=== PATIENT | female | born 1965 | race Caucasian/White ===

== ENCOUNTER 2016-08-31 10:32 | Emergency (ER) | payer SELFPAY ==
[2016-08-31 10:36] VITALS: BP 133/96; BMI 21.9
--- NOTE | 2016-08-31 11:03 | DR.GENAD ---
HPI - PCP Primary Care Physician: NFD - Complaint/Symptoms Chief Complaint Doctors Comments: Patient admits to stomach and back pain for two days. Denies fever, Pain is sever 10, worse with movement, sharp. She admits to vomiting atleast 20 times. Chief Complaint:: PT. C/O N/V/D, HEADACHE, FEVER. - Source History Provided: Patient - Mode of Arrival Mode of Arrival: Ambulatory - Timing Onset of Chief Complaint: 08/29/16 PMH - PMH Past Medical History: Yes Past Medical History: Anxiety, Depression Past Medical History Comment: BIPOLAR, TIA Past Surgical History: Yes Surgical History: , QI SPECIALIST Surgery, Hysterectomy Past Surgical History Comment: TUBAL LIGATION, BREAST AUGMENTATION - Family History History of Family Medical Conditions: Yes Family Medical History: [place], Coronary Artery Disease - Social History Does patient currently use any type of tobacco product: Yes Have you used tobacco products in the last 12 months: Yes Type of Tobacco Use: Cigarettes How many years tobacco product used: 15 Does any household member use tobacco: No Alcohol Use: Rarely Do you use any recreational Drugs:: No Lives With: Significant Other Lives Where: Home - infectious screening In the last 2 months have you had wt loss of >10#?: NO Have you had fever, night sweats or hemotysis?: No Have you traveled outside the country in the last 6 months?: No Isolation: Standard ROS - Review of Systems Constitutional: No Symptoms Reported Eyes: No Symptoms Reported ENTM: No Symptoms Reported Respiratoy: No Symptoms Reported Cardiovascular: No Symptoms Reported Gastrointestinal/Abdominal: No Symptoms Reported Genitourinary: No Symptoms Reported Neurological: No Symptoms Reported Musculoskeletal: Left (flank pain) Integumentary: No Symptoms Reported Hematologic/Lymphatic: No Symptoms Reported Endocrine: No Symptoms Reported All Other Systems: Reviewed and Negative PE - Vital Signs Vitals: Temperature 97.6 F Pulse Rate 86 Respiratory Rate 18 Blood Pressure 133/96 O2 Sat by Pulse Oximetry 99 - General Limitations: No Limitations General Appearance: Alert, In No Apparent Distress - Head Head Exam: Normal Inspection, Atraumatic - Eyes Eye exam: Normal Appearance, PERRL, EOMI - ENT ENT Exam: Normal Exam External Ear Exam: Normal External Inspection TM/Canal Exam: Bilateral Normal Nose Exam: Normal Nose Exam Mouth Exam: Normal Inspection Throat Exam: Normal Inspection - Chest Chest Inspection: Normal Inspection - Respiratory Respiratory Exam: Normal Lung Sounds Bilat Respiratory Exam: Bilateral Clear to Auscultation - Cardiovascular Cardiovascular Exam: Regular Rate, Normal Rhythm - Abdominal Exam Abdominal Exam: Normal Inspection, Normal Bowel Sounds Abdominal Tenderness: negative: RUQ, RLQ, LUQ, LLQ, Epigastrium, Suprapubic, Diffuse, Mild, Moderate, Severe, Other - Extremities Extremities Exam: Normal Inspection, Full ROM - Back Back Exam: Normal Inspection, Full ROM - Neurologic Neurological Exam: Alert, Oriented X3, CN II-XII Intact - Psychiatric Psychiatric Exam: Normal Affect - Skin Skin Exam: Warm, Dry, Intact Course - Treatment Treatment: IV Hydration negative workup - Reevaluation 1st: Improved ROR - Labs Reviewed Result Diagrams: 08/31/16 11:35 08/31/16 11:35 Laboratory: WBC 13.0 X10^3/uL (3.6-10.0) H 08/31/16 11:35 RBC 4.21 X10^6/uL (3.5-5.4) 08/31/16 11:35 Hgb 12.6 g/dL (12.0-16.0) 08/31/16 11:35 Hct 37.4 % (36.0-47.0) 08/31/16 11:35 MCV 88.8 fL (80.0-100.0) 08/31/16 11:35 MCH 29.9 pg (27.0-34.0) 08/31/16 11:35 MCHC 33.6 g/dL (33.0-35.0) 08/31/16 11:35 RDW 14.5 % (11.6-16.5) 08/31/16 11:35 Plt Count 270 X10^3/uL (150.0-450.0) 08/31/16 11:35 MPV 9.2 fL (7.4-11.0) 08/31/16 11:35 Neut % 70.3 % (42.0-75.0) 08/31/16 11:35 Lymph % 22.0 % (21.0-51.0) 08/31/16 11:35 [place] % 5.6 % (0.0-13.0) 08/31/16 11:35 Eos % 0.9 % (0.9-2.9) 08/31/16 11:35 Baso % 1.2 % (0.2-1.0) H 08/31/16 11:35 Neut # 9.2 x10^3/uL (2.2-4.8) H 08/31/16 11:35 Lymph # 2.9 X10^3/uL (1.3-2.9) 08/31/16 11:35 [place] # 0.7 x10^3/uL (0.3-0.8) 08/31/16 11:35 Eos # 0.1 x10^3/uL (0.0-0.2) 08/31/16 11:35 Baso # 0.2 X10^3/uL (0.0-0.1) H 08/31/16 11:35 Absolute Nucleated RBC 0.0 /100WBC 08/31/16 11:35 Sodium 143 mmol/L (136-145) 08/31/16 11:35 Corrected Sodium TNP 08/31/16 11:35 Potassium 4.2 mmol/L (3.5-5.1) 08/31/16 11:35 Chloride 108 mmol/L (98-107) H 08/31/16 11:35 Carbon Dioxide 21.8 mmol/L (21-32) 08/31/16 11:35 BUN 10 mg/dL (7-18) 08/31/16 11:35 Creatinine 0.95 mg/dL (0.55-1.02) 08/31/16 11:35 Est GFR (MDRD) Af Amer > 60 (>60) 08/31/16 11:35 Est GFR (MDRD) Non-Af > 60 (>60) 08/31/16 11:35 Glucose 99 mg/dL (65-99) 08/31/16 11:35 Calcium 9.3 mg/dL (8.5-10.1) 08/31/16 11:35 Corrected Calcium TNP 08/31/16 11:35 Total Bilirubin 0.50 mg/dL (0.2-1.0) 08/31/16 11:35 AST 17 Units/L (15-37) 08/31/16 11:35 ALT 19 Units/L (12-78) 08/31/16 11:35 Alkaline Phosphatase 111 Units/L (46-116) 08/31/16 11:35 C-Reactive Protein 17.20 mg/L (0-3.0) H 08/31/16 11:35 Total Protein 7.6 g/dL (6.4-8.2) 08/31/16 11:35 Albumin 3.8 g/dL (3.4-5.0) 08/31/16 11:35 Globulin 3.8 g/dL (2.5-4.5) 08/31/16 11:35 Albumin/Globulin Ratio 1.0 Ratio (1.1-2.1) L 08/31/16 11:35 Amylase 46 Units/L (25-115) 08/31/16 11:35 Lipase 68 Units/L (73-393) L 08/31/16 11:35 Specimen Type Clean catch urine 08/31/16 11:36 Urine Color Yellow (YELLOW) 08/31/16 11:36 Urine Appearance Clear (CLEAR) 08/31/16 11:36 Urine pH 6.0 (5.0 - 8.0) 08/31/16 11:36 Ur Specific [place] 1.020 (1.000-1.030) 08/31/16 11:36 Urine Protein 1+ (NEGATIVE) 08/31/16 11:36 Urine Glucose (UA) Negative (NEGATIVE) 08/31/16 11:36 Urine Ketones Negative (NEGATIVE) 08/31/16 11:36 Urine Occult Blood Negative (NEGATIVE) 08/31/16 11:36 Urine Nitrite Negative (NEGATIVE) 08/31/16 11:36 Urine Bilirubin Negative (NEGATIVE) 08/31/16 11:36 Urine Urobilinogen Normal (NORMAL) 08/31/16 11:36 Ur Leukocyte Esterase Negative (NEGATIVE) 08/31/16 11:36 Urine RBC Rare /HPF (NEGATIVE) 08/31/16 11:36 Urine WBC None seen /HPF (NEGATIVE) 08/31/16 11:36 Ur Squamous Epith Cells Rare /HPF (NEGATIVE) 08/31/16 11:36 Urine Bacteria Negative /HPF (NEGATIVE) 08/31/16 11:36 Urine Mucus Few /HPF (NEGATIVE) 08/31/16 11:36 Ur Culture Indicated? No/not indicated 08/31/16 11:36 - XRAY XRAY Interpreted by: Radiologist (Acute Abdomen serives: negative) - Diagnosis Discharge Problem: Gastroenteritis - Discharge Plan Condition: Stable - Follow ups/Referrals Follow ups/Referrals: NFD,None [Primary Care Provider] - 3 days - Instructions
[2016-08-31] MEDS ORDERED: NS 1000 ML 1,000 ML IV ONE ×2 (11:04→13:16)
[2016-08-31] MEDS ORDERED: MORPHINE SULFATE INJ 4 MG IVP ONE (11:06)
[2016-08-31] MEDS ORDERED: NS 1000 ML 1,000 ML ONE ×2 (11:07→13:16)
--- NOTE | 2016-08-31 11:25 | RAD ---
ACUTE ABDOMINAL SERIES CLINICAL HISTORY: 51-year-old female with left upper quadrant pain and vomiting. COMPARISON: None. FINDINGS: PA chest radiograph demonstrates normal cardiopericardial silhouette. There is no focal consolidatio n, pleural effusion or pneumothorax. Pulmonary vascularity is normal. Abdominal radiographs demonstrate a nonobstructive bowel gas pattern. Gas and stool are seen through out the colon. There is no small bowel distention. There is no radiographic evidence of pneumoperito neum. Multiple pelvic phleboliths. Imaged osseous structures are intact. Soft tissues are unremarkable. IMPRESSION: 1. No acute cardiopulmonary process. 2. Nonobstructive bowel gas pattern without radiographic evidence of pneumoperitoneum. Reported By:
[2016-08-31 11:45] LABS: BASOPHILS # (AUTO) 0.2 X10^3/uL (0.0-0.1); BASOPHILS % (AUTO) 1.2 % (0.2-1.0); EOSINOPHILS # (AUTO) 0.1 x10^3/uL (0.0-0.2); EOSINOPHILS % (AUTO) 0.9 % (0.9-2.9); HEMATOCRIT 37.4 % (36.0-47.0); HEMOGLOBIN 12.6 g/dL (12.0-16.0); LYMPHOCYTES # (AUTO) 2.9 X10^3/uL (1.3-2.9); MEAN CORPUSCULAR HEMOGLOBIN 29.9 pg (27.0-34.0); MEAN CORPUSCULAR HGB CONC 33.6 g/dL (33.0-35.0); MEAN CORPUSCULAR VOLUME 88.8 fL (80.0-100.0); MEAN PLATELET VOLUME 9.2 fL (7.4-11.0); MONOCYTES # (AUTO) 0.7 x10^3/uL (0.3-0.8); MONOCYTES % (AUTO) 5.6 % (0.0-13.0); NEUTROPHILS # (AUTO) 9.2 x10^3/uL (2.2-4.8); NEUTROPHILS % (AUTO) 70.3 % (42.0-75.0); PLATELET COUNT 270 X10^3/uL (150.0-450.0); RED BLOOD COUNT 4.21 X10^6/uL (3.5-5.4); RED CELL DISTRIBUTION WIDTH 14.5 % (11.6-16.5)
[2016-08-31 11:51] LABS: BILIRUBIN,URINE NEGATIVE (NEGATIVE); BLOOD/HEMOGLOBIN,URINE NEGATIVE (NEGATIVE); GLUCOSE, URINE NEGATIVE (NEGATIVE); KETONES,URINE NEGATIVE (NEGATIVE); LEUKOCYTE ESTERASE ,URINE NEGATIVE (NEGATIVE); NITRITES,URINE NEGATIVE (NEGATIVE); PROTEIN,URINE 1+ (NEGATIVE); UROBILINOGEN,URINE NORMAL (NORMAL)
[2016-08-31 11:58] LABS: C-REACTIVE PROTEIN 17.2 mg/L (0-3.0)
[2016-08-31 11:59] LABS: ALANINE AMINOTRANSFERASE 19 Units/L (12-78); ALBUMIN 3.8 g/dL (3.4-5.0); ALKALINE PHOSPHATASE 111 Units/L (46-116); ASPARTATE AMINO TRANSFERASE 17 Units/L (15-37); BLOOD UREA NITROGEN 10 mg/dL (7-18); CALCIUM 9.3 mg/dL (8.5-10.1); CARBON DIOXIDE 21.8 mmol/L (21-32); CHLORIDE 108 mmol/L (98-107); CREATININE 0.95 mg/dL (0.55-1.02); GLUCOSE 99 mg/dL (65-99); SODIUM 143 mmol/L (136-145); TOTAL PROTEIN 7.6 g/dL (6.4-8.2); eGFR BLACK RACES > 60 (>60); eGFR NON BLACK RACES > 60 (>60)
[2016-08-31 12:02] LABS: APPEARANCE,URINE CLEAR (CLEAR); BACTERIA,URINE NEGATIVE /HPF (NEGATIVE); COLOR,URINE YELLOW (YELLOW); RBC,URINE RARE /HPF (NEGATIVE); SQUAMOUS EPITHELIAL CELL,UR RARE /HPF (NEGATIVE)
[2016-08-31 12:03] LABS: MUCUS,URINE FEW /HPF (NEGATIVE)
[2016-08-31] MEDS ORDERED: MORPHINE SULFATE INJ 4 MG ONE (12:18)
[2016-08-31] MEDS ORDERED: ZOFRAN INJ 4 MG VIAL IVP ONE (12:32)
[2016-08-31] MEDS ORDERED: ZOFRAN INJ 4 MG VIAL ONE (12:51)
[2016-08-31] MEDS ORDERED: TORADOL 30 MG VIAL IVP ONE (14:17)
[2016-08-31] MEDS ORDERED: TORADOL 30 MG VIAL ONE (14:18)
== END 2016-08-31 14:29 | disposition home or self-care (01) ==
LOC: ER 10:32
DX: K52.89 Other specified noninfective gastroenteritis and colitis (principal)
CPT/HCPCS: 36415; 74022; 80053; 81001; 82150; 83690; 85025; 86140; 96365; 96367; 96374; 96375; 99283; A4222; J1885; J2270; J2405

== ENCOUNTER 2016-09-07 11:08 | Emergency (ER) | payer SELFPAY ==
[2016-09-07 11:12] VITALS: BP 181/104; BMI 21.9
[2016-09-07] MEDS ORDERED: ZOFRAN INJ 4 MG VIAL IM ONE (11:50)
[2016-09-07] MEDS ORDERED: MORPHINE SULFATE INJ 4 MG IM ONE (11:51)
--- NOTE | 2016-09-07 11:51 | DR.GENAD ---
HPI - PCP Primary Care Physician: NFD - Complaint/Symptoms Chief Complaint:: LEFT SIDED PAIN WHICH HAS WORSENED WITHIN THE PAST 3 DAYS. PAIN DECREASES WHEN PT. LAYS ON THAT SIDE. - Source History Provided: Patient - Mode of Arrival Mode of Arrival: Ambulatory - Timing Onset of Chief Complaint: 09/04/16 PMH - PMH Past Medical History: Yes Past Medical History: Anxiety, Depression Past Surgical History: Yes Surgical History: , CAD INTERN Surgery, Hysterectomy - Family History History of Family Medical Conditions: Yes Family Medical History: [place], Coronary Artery Disease - Social History Does patient currently use any type of tobacco product: Yes Type of Tobacco Use: Cigarettes Does any household member use tobacco: No Alcohol Use: None Do you use any recreational Drugs:: No Lives With: Spouse Lives Where: Home - infectious screening In the last 2 months have you had wt loss of >10#?: NO Have you had fever, night sweats or hemotysis?: No Have you traveled outside the country in the last 6 months?: No Isolation: Standard PE - Vital Signs Vitals: Temperature 97.9 F Pulse Rate 78 Respiratory Rate 18 Blood Pressure 181/104 O2 Sat by Pulse Oximetry 99 ROR - Labs Reviewed Result Diagrams: 09/07/16 12:10 09/07/16 12:10 Laboratory: WBC 11.6 X10^3/uL (3.6-10.0) H 09/07/16 12:10 RBC 3.63 X10^6/uL (3.5-5.4) 09/07/16 12:10 Hgb 11.0 g/dL (12.0-16.0) L 09/07/16 12:10 Hct 32.4 % (36.0-47.0) L 09/07/16 12:10 MCV 89.1 fL (80.0-100.0) 09/07/16 12:10 MCH 30.4 pg (27.0-34.0) 09/07/16 12:10 MCHC 34.1 g/dL (33.0-35.0) 09/07/16 12:10 RDW 14.5 % (11.6-16.5) 09/07/16 12:10 Plt Count 255 X10^3/uL (150.0-450.0) 09/07/16 12:10 MPV 9.0 fL (7.4-11.0) 09/07/16 12:10 Neut % 73.9 % (42.0-75.0) 09/07/16 12:10 Lymph % 16.5 % (21.0-51.0) L 09/07/16 12:10 [place] % 8.3 % (0.0-13.0) 09/07/16 12:10 Eos % 0.9 % (0.9-2.9) 09/07/16 12:10 Baso % 0.4 % (0.2-1.0) 09/07/16 12:10 Neut # 8.6 x10^3/uL (2.2-4.8) H 09/07/16 12:10 Lymph # 1.9 X10^3/uL (1.3-2.9) 09/07/16 12:10 [place] # 1.0 x10^3/uL (0.3-0.8) H 09/07/16 12:10 Eos # 0.1 x10^3/uL (0.0-0.2) 09/07/16 12:10 Baso # 0.0 X10^3/uL (0.0-0.1) 09/07/16 12:10 Absolute Nucleated RBC 0.0 /100WBC 09/07/16 12:10 Sodium 140 mmol/L (136-145) 09/07/16 12:10 Corrected Sodium TNP 09/07/16 12:10 Potassium 3.8 mmol/L (3.5-5.1) 09/07/16 12:10 Chloride 105 mmol/L (98-107) 09/07/16 12:10 Carbon Dioxide 24.1 mmol/L (21-32) 09/07/16 12:10 BUN 10 mg/dL (7-18) 09/07/16 12:10 Creatinine 1.00 mg/dL (0.55-1.02) 09/07/16 12:10 Est GFR (MDRD) Af Amer > 60 (>60) 09/07/16 12:10 Est GFR (MDRD) Non-Af > 60 (>60) 09/07/16 12:10 Glucose 101 mg/dL (65-99) H 09/07/16 12:10 Calcium 9.3 mg/dL (8.5-10.1) 09/07/16 12:10 Corrected Calcium TNP 09/07/16 12:10 Total Bilirubin 1.90 mg/dL (0.2-1.0) H 09/07/16 12:10 AST 15 Units/L (15-37) 09/07/16 12:10 ALT 15 Units/L (12-78) 09/07/16 12:10 Alkaline Phosphatase 93 Units/L (46-116) 09/07/16 12:10 C-Reactive Protein 59.30 mg/L (0-3.0) H 09/07/16 12:10 Total Protein 7.3 g/dL (6.4-8.2) 09/07/16 12:10 Albumin 3.6 g/dL (3.4-5.0) 09/07/16 12:10 Globulin 3.7 g/dL (2.5-4.5) 09/07/16 12:10 Albumin/Globulin Ratio 1.0 Ratio (1.1-2.1) L 09/07/16 12:10 Amylase 32 Units/L (25-115) 09/07/16 12:10 Lipase 44 Units/L (73-393) L 09/07/16 12:10 Specimen Type Clean catch urine 09/07/16 14:04 Urine Color Yellow (YELLOW) 09/07/16 14:04 Urine Appearance Hazy (CLEAR) 09/07/16 14:04 Urine pH 7.0 (5.0 - 8.0) 09/07/16 14:04 Ur Specific [place] 1.005 (1.000-1.030) 09/07/16 14:04 Urine Protein 1+ (NEGATIVE) 09/07/16 14:04 Urine Glucose (UA) Negative (NEGATIVE) 09/07/16 14:04 Urine Ketones 1+ (NEGATIVE) 09/07/16 14:04 Urine Occult Blood Negative (NEGATIVE) 09/07/16 14:04 Urine Nitrite Negative (NEGATIVE) 09/07/16 14:04 Urine Bilirubin Negative (NEGATIVE) 09/07/16 14:04 Urine Urobilinogen Normal (NORMAL) 09/07/16 14:04 Ur Leukocyte Esterase Negative (NEGATIVE) 09/07/16 14:04 Urine RBC 0-2 /HPF (NEGATIVE) 09/07/16 14:04 Urine WBC 0-2 /HPF (NEGATIVE) 09/07/16 14:04 Ur Squamous Epith Cells Few /HPF (NEGATIVE) 09/07/16 14:04 Urine Bacteria Trace /HPF (NEGATIVE) 09/07/16 14:04 Ur Culture Indicated? No/not indicated 09/07/16 14:04 - XRAY XRAY Interpreted by: Radiologist (CT Bibasilar scarring versus atelectasis. Otherwise, the visualized portions of the lung bases are unremarkable. No evidence of acute abdominal/pelvic pathology) - Diagnosis Discharge Problem: Pleurisy without effusion - Discharge Plan Condition: Stable - Follow ups/Referrals Follow ups/Referrals: NFD,None [Primary Care Provider] - 3 days - Instructions
[2016-09-07] MEDS ORDERED: NS 1000 ML 1,000 ML IV SCH (12:00)
[2016-09-07] MEDS ORDERED: NS 1000 ML 1,000 ML ONE (12:17)
[2016-09-07] MEDS ORDERED: MORPHINE SULFATE INJ 4 MG ONE ×2 (12:17→14:14)
[2016-09-07] MEDS ORDERED: ZOFRAN INJ 4 MG VIAL ONE (12:17)
[2016-09-07 12:24] LABS: BASOPHILS % (AUTO) 0.4 % (0.2-1.0); EOSINOPHILS # (AUTO) 0.1 x10^3/uL (0.0-0.2); EOSINOPHILS % (AUTO) 0.9 % (0.9-2.9); HEMATOCRIT 32.4 % (36.0-47.0); LYMPHOCYTES # (AUTO) 1.9 X10^3/uL (1.3-2.9); LYMPHOCYTES % (AUTO) 16.5 % (21.0-51.0); MEAN CORPUSCULAR HEMOGLOBIN 30.4 pg (27.0-34.0); MEAN CORPUSCULAR HGB CONC 34.1 g/dL (33.0-35.0); MEAN CORPUSCULAR VOLUME 89.1 fL (80.0-100.0); MONOCYTES % (AUTO) 8.3 % (0.0-13.0); NEUTROPHILS # (AUTO) 8.6 x10^3/uL (2.2-4.8); NEUTROPHILS % (AUTO) 73.9 % (42.0-75.0); PLATELET COUNT 255 X10^3/uL (150.0-450.0); RED BLOOD COUNT 3.63 X10^6/uL (3.5-5.4); RED CELL DISTRIBUTION WIDTH 14.5 % (11.6-16.5); WHITE BLOOD COUNT 11.6 X10^3/uL (3.6-10.0)
[2016-09-07 12:33] LABS: ALANINE AMINOTRANSFERASE 15 Units/L (12-78); ALBUMIN 3.6 g/dL (3.4-5.0); ALKALINE PHOSPHATASE 93 Units/L (46-116); ASPARTATE AMINO TRANSFERASE 15 Units/L (15-37); BLOOD UREA NITROGEN 10 mg/dL (7-18); CALCIUM 9.3 mg/dL (8.5-10.1); CARBON DIOXIDE 24.1 mmol/L (21-32); CHLORIDE 105 mmol/L (98-107); GLUCOSE 101 mg/dL (65-99); SODIUM 140 mmol/L (136-145); TOTAL PROTEIN 7.3 g/dL (6.4-8.2); eGFR BLACK RACES > 60 (>60); eGFR NON BLACK RACES > 60 (>60)
[2016-09-07] MEDS ORDERED: TORADOL 30 MG VIAL IVP ONE (13:08)
[2016-09-07] MEDS ORDERED: NS 100 ML IV 100 ML IV ONE (13:10)
[2016-09-07] MEDS ORDERED: TORADOL 30 MG VIAL ONE (13:10)
[2016-09-07 13:29] LABS: AMYLASE 32 Units/L (25-115); LIPASE 44 Units/L (73-393)
--- NOTE | 2016-09-07 13:45 | CT ---
HISTORY: Left-sided abdominal pain. Study: CT abdomen and pelvis with contrast Comparison: Acute abdominal series dated August 31, 2016. Technique: Multiple axial images of the abdomen and pelvis were obtained from the lung bases to the pubic symph ysis after the administration of IV contrast. Dose reduction techniques including Automated Exposur e Control (AEC) and adjustment of mA and kV were utilized. Findings: Bibasilar scarring versus atelectasis. Otherwise, the visualized portions of the lung bases are unre markable. The liver, spleen, pancreas, kidneys, and adrenal glands are unremarkable in their CT linda earance. The gallbladder is unremarkable in its CT appearance. No significant mesenteric lymphadeno suzanna or stranding can be observed. No free fluid or free air is seen within the abdomen. The visu alized large and small bowel appear normal. The appendix is normal. The uterus and ovaries appear mojica rgically absent. The urinary bladder is grossly unremarkable. The bony structures are grossly intac t. IMPRESSION: No CT evidence of acute abdominal/pelvic pathology. Reported By:
[2016-09-07 14:12] LABS: BILIRUBIN,URINE NEGATIVE (NEGATIVE); BLOOD/HEMOGLOBIN,URINE NEGATIVE (NEGATIVE); GLUCOSE, URINE NEGATIVE (NEGATIVE); KETONES,URINE 1+ (NEGATIVE); LEUKOCYTE ESTERASE ,URINE NEGATIVE (NEGATIVE); NITRITES,URINE NEGATIVE (NEGATIVE); PROTEIN,URINE 1+ (NEGATIVE); UROBILINOGEN,URINE NORMAL (NORMAL)
[2016-09-07] MEDS ORDERED: MORPHINE SULFATE INJ 4 MG IVP ONE (14:13)
[2016-09-07] MEDS ORDERED: SOLU-Medrol 125 MG VIAL IVP ONE (14:15)
[2016-09-07] MEDS ORDERED: SOLU-Medrol 125 MG VIAL ONE (14:17)
[2016-09-07 14:21] LABS: APPEARANCE,URINE HAZY (CLEAR); COLOR,URINE YELLOW (YELLOW); RBC,URINE 0-2 /HPF (NEGATIVE)
[2016-09-07 14:22] LABS: BACTERIA,URINE TRACE /HPF (NEGATIVE); SQUAMOUS EPITHELIAL CELL,UR FEW /HPF (NEGATIVE)
== END 2016-09-07 14:57 | disposition home or self-care (01) ==
LOC: ER 11:33
DX: R09.1 Pleurisy (principal); R10.84 Generalized abdominal pain
CPT/HCPCS: 36415; 74177; 80053; 81001; 82150; 83690; 85025; 86140; 96365; 96367; 96372; 96374; 96375; 99282; 99283; A4222; J1885; J2270; J2405; J2930

== ENCOUNTER 2016-09-09 12:16 | Emergency (ER) | payer SELFPAY ==
[2016-09-09 12:32] VITALS: BMI 25.0
--- NOTE | 2016-09-09 12:32 | DR.GENAD ---
HPI - PCP Primary Care Physician: ALLISON - Complaint/Symptoms Chief Complaint Doctors Comments: Patient fell backward and injured her right wrist. painful appears to be broken Chief Complaint:: PATIENT FELL BACK AND TRIED TO CATCH HERSELF WITH HER RIGHT HAND - Source History Provided: Patient - Mode of Arrival Mode of Arrival: Ambulatory - Timing Onset of Chief Complaint: 09/09/16 PMH - PMH Past Medical History: Yes Past Medical History: Anxiety, Depression Past Surgical History: Yes Surgical History: , ECONOMICS LECTURER Surgery, Hysterectomy - Family History History of Family Medical Conditions: Yes Family Medical History: [place], Coronary Artery Disease - Social History Does patient currently use any type of tobacco product: No Have you used tobacco products in the last 12 months: No Type of Tobacco Use: None Does any household member use tobacco: No Alcohol Use: None Do you use any recreational Drugs:: No Lives With: Family Lives Where: Home - infectious screening In the last 2 months have you had wt loss of >10#?: NO Have you had fever, night sweats or hemotysis?: No Have you traveled outside the country in the last 6 months?: No Isolation: Standard ROS - Review of Systems Eyes: No Symptoms Reported ENTM: No Symptoms Reported Respiratoy: No Symptoms Reported Cardiovascular: No Symptoms Reported Gastrointestinal/Abdominal: No Symptoms Reported Genitourinary: No Symptoms Reported Neurological: No Symptoms Reported Musculoskeletal: Joint Swelling, Muscle Pain, Wrist Hematologic/Lymphatic: No Symptoms Reported Endocrine: No Symptoms Reported Psychiatric: No Symptoms Reported All Other Systems: Reviewed and Negative PE - Vital Signs Vitals: Temperature 98.6 F Pulse Rate 96 Respiratory Rate 18 Blood Pressure 130/70 O2 Sat by Pulse Oximetry 100 - General Limitations: No Limitations General Appearance: Alert, In No Apparent Distress - Head Head Exam: Normal Inspection, Atraumatic - Eyes Eye exam: Normal Appearance, PERRL, EOMI - ENT ENT Exam: Normal Exam External Ear Exam: Normal External Inspection TM/Canal Exam: Bilateral Normal Nose Exam: Normal Nose Exam Mouth Exam: Normal Inspection Throat Exam: Normal Inspection - Neck Neck Exam: Normal Inspection - Chest Chest Inspection: Normal Inspection - Respiratory Respiratory Exam: Normal Lung Sounds Bilat Respiratory Exam: Bilateral Clear to Auscultation - Cardiovascular Cardiovascular Exam: Regular Rate, Normal Rhythm - Abdominal Exam Abdominal Exam: Normal Inspection Abdominal Tenderness: negative: RUQ, RLQ, LUQ, LLQ, Epigastrium, Suprapubic, Diffuse, Mild, Moderate, Severe, Other - Extremities Extremities Exam: Joint Swelling (right wrist, deformed) - Back Back Exam: Normal Inspection - Neurologic Neurological Exam: Alert, Oriented X3, CN II-XII Intact - Psychiatric Psychiatric Exam: Normal Affect - Skin Skin Exam: Warm, Dry, Intact Course - Treatment Treatment: Wrist reduced under anesthesia by corporate travel consultant anesthesiologist - Reevaluation 1st: Improved ROR - XRAY XRAY Interpreted by: Radiologist (Right wrist: Fractures of the distal radius and ulnar styloid. There is a slightly impacted transverse fracture of the diamataphyseal region of the distal right rtadius with ventral displacement of the distal fracture fragment. There is displaced ulnar sytloid fracture.) - Diagnosis Discharge Problem: Wrist fracture, right Qualifiers: Encounter type: initial encounter Fracture type: closed Qualified Code(s): S62.101A - Fracture of unspecified carpal bone, right wrist, initial encounter for closed fracture - Discharge Plan Condition: Stable - Follow ups/Referrals Follow ups/Referrals: Ender Anderson [Primary Care Provider] - 3 days - Instructions
[2016-09-09] MEDS ORDERED: DILAUDID INJ IM ONE (12:44)
--- NOTE | 2016-09-09 12:59 | RAD ---
HISTORY: Injury, fall, right wrist pain Study: Right wrist three view Comparison: None Findings: There is an impacted fracture of the diametaphyseal region of the distal right radius with ventral d isplacement of the distal fracture fragment. There is a fracture of the ulnar-styloid. The carpal feng tim are intact and normally aligned. IMPRESSION: Fractures of the distal radius and ulnar-styloid as described above Reported By:
--- NOTE | 2016-09-09 13:00 | RAD ---
HISTORY: Injury, fall, right forearm pain Study: Right forearm two view Comparison: None Findings: There is a slightly impacted transverse fracture of the diametaphyseal region of the distal right ra dius with ventral displacement of the distal fracture fragment. There is a displaced ulnar styloid f racture. The remainder of the radius and ulna are intact. IMPRESSION: Fractures of the distal radius and ulna as described above Reported By:
[2016-09-09] MEDS ORDERED: NS 1000 ML 1,000 ML ONE (13:44)
[2016-09-09] MEDS ORDERED: DIPRIVAN VIAL 20 ML ONE (13:44)
[2016-09-09] MEDS ORDERED: MORPHINE SULFATE INJ 4 MG IVP ONE (13:58)
[2016-09-09] MEDS ORDERED: MORPHINE SULFATE INJ 4 MG ONE (13:59)
--- NOTE | 2016-09-09 15:17 | RAD ---
HISTORY: Right wrist fracture status post reduction. Study: Two views of the right wrist. Comparison: Right wrist series dated same day. Findings: Improved alignment of a comminuted/impacted right distal radius fracture. Right ulnar styloid fractu re is again seen. Surrounding soft tissue swelling. Remaining osseous structures appear intact. IMPRESSION: Improved alignment. Reported By:
[2016-09-09 15:44] VITALS: BP 119/70
== END 2016-09-09 15:45 | disposition home or self-care (01) | DRG 563 ==
LOC: ER 12:26
PROC: 0PSHXZZ Reposition Right Radius, External Approach (ICD-10-PCS; principal; 2016-09-09)
DX: S62.101A Fracture of unspecified carpal bone, right wrist, initial encounter for closed fracture (principal); X58.XXXA Exposure to other specified factors, initial encounter; Y92.89 Other specified places as the place of occurrence of the external cause
CPT/HCPCS: 25600; 73090; 73100; 96365; 96374; 96375; 99283; A4222; J2270; J3490

== ENCOUNTER 2016-10-01 14:55 | Emergency (ER) | payer SELFPAY ==
[2016-10-01 15:01] VITALS: BP 117/90; BMI 23.5
--- NOTE | 2016-10-01 17:19 | DR.GENAD ---
HPI - PCP Primary Care Physician: DR. COOPER - Complaint/Symptoms Chief Complaint Doctors Comments: "Abd pain" Chief Complaint:: STOMACH PAIN THAT HAS BEEN GOING ON FOR 2-3 WEEKS. - Source History Provided: Patient - Mode of Arrival Mode of Arrival: Ambulatory - Timing Onset of Chief Complaint: 09/17/16 PMH - PMH Past Medical History: Yes Past Medical History: Anxiety, Depression Past Surgical History: Yes Surgical History: , [employer] Surgery, Hysterectomy - Family History History of Family Medical Conditions: Yes Family Medical History: [place], Coronary Artery Disease - Social History Does patient currently use any type of tobacco product: Yes Have you used tobacco products in the last 12 months: Yes Type of Tobacco Use: Cigarettes Does any household member use tobacco: No Alcohol Use: Rarely Do you use any recreational Drugs:: No Lives With: Family Lives Where: Home - infectious screening In the last 2 months have you had wt loss of >10#?: NO Have you had fever, night sweats or hemotysis?: No Have you traveled outside the country in the last 6 months?: No Isolation: Standard ROS - Review of Systems Constitutional: No Symptoms Reported Eyes: No Symptoms Reported ENTM: No Symptoms Reported Respiratoy: No Symptoms Reported Cardiovascular: No Symptoms Reported Gastrointestinal/Abdominal: Abdominal Pain, Diarrhea, Nausea, Vomiting Genitourinary: No Symptoms Reported Neurological: No Symptoms Reported Musculoskeletal: No Symptoms Reported Integumentary: No Symptoms Reported Hematologic/Lymphatic: No Symptoms Reported Endocrine: No Symptoms Reported Psychiatric: No Symptoms Reported All Other Systems: Reviewed and Negative PE - Vital Signs Vitals: Temperature 97.7 F Pulse Rate 110 Respiratory Rate 20 Blood Pressure [Left Arm] 119/70 Blood Pressure 117/90 O2 Sat by Pulse Oximetry 98 - General Limitations: No Limitations General Appearance: In No Apparent Distress - Head Head Exam: Normal Inspection - ENT Mouth Exam: Normal Inspection Throat Exam: Normal Inspection - Neck Neck Exam: Normal Inspection, Full ROM, Trachea Midline - Chest Chest Inspection: Normal Inspection, Symmetric Chest Wall Rise - Respiratory Respiratory Exam: Normal Lung Sounds Bilat - Cardiovascular Cardiovascular Exam: Regular Rate, Normal Rhythm, Normal Heart Sounds - Abdominal Exam Abdominal Exam: Tenderness (diffuse), Hypoactive Bowel Sounds. negative: Rebound, Rigidity, Hyperactive Bowel Sounds, Organomegaly, Trauma, Incision, Ascites, Mass, Bruit, Pulsatile Mass, Hernia ROR - Labs Reviewed Result Diagrams: 10/01/16 17:35 10/01/16 17:35 Laboratory: WBC 17.9 X10^3/uL (3.6-10.0) H 10/01/16 17:35 RBC 4.23 X10^6/uL (3.5-5.4) 10/01/16 17:35 Hgb 12.6 g/dL (12.0-16.0) 10/01/16 17:35 Hct 36.6 % (36.0-47.0) 10/01/16 17:35 MCV 86.6 fL (80.0-100.0) 10/01/16 17:35 MCH 29.8 pg (27.0-34.0) 10/01/16 17:35 MCHC 34.5 g/dL (33.0-35.0) 10/01/16 17:35 RDW 14.2 % (11.6-16.5) 10/01/16 17:35 Plt Count 445 X10^3/uL (150.0-450.0) 10/01/16 17:35 Plt Count Comment Adequate (ADEQUATE) 10/01/16 17:35 MPV 8.9 fL (7.4-11.0) 10/01/16 17:35 Neut % 90.3 % (42.0-75.0) H 10/01/16 17:35 Lymph % 5.8 % (21.0-51.0) L 10/01/16 17:35 [place] % 3.6 % (0.0-13.0) 10/01/16 17:35 Eos % 0.0 % (0.9-2.9) L 10/01/16 17:35 Baso % 0.3 % (0.2-1.0) 10/01/16 17:35 Neut # 16.2 x10^3/uL (2.2-4.8) H 10/01/16 17:35 Lymph # 1.0 X10^3/uL (1.3-2.9) L 10/01/16 17:35 [place] # 0.6 x10^3/uL (0.3-0.8) 10/01/16 17:35 Eos # 0.0 x10^3/uL (0.0-0.2) 10/01/16 17:35 Baso # 0.1 X10^3/uL (0.0-0.1) 10/01/16 17:35 Absolute Nucleated RBC 0.0 /100WBC 10/01/16 17:35 Total Counted 100 10/01/16 17:35 Neutrophils % (Manual) 76 % (39-76) 10/01/16 17:35 Band Neutrophils % 10 % (0-10) 10/01/16 17:35 Lymphocytes % (Manual) 8 % (13-43) L 10/01/16 17:35 Monocytes % (Manual) 6 % (4-9) 10/01/16 17:35 Plt Morphology Comment Normal (NORMAL) 10/01/16 17:35 RBC Morphology Normal (NORMAL) 10/01/16 17:35 ESR 45 MM/HOUR (0-20) H 10/01/16 17:35 Sodium 139 mmol/L (136-145) 10/01/16 17:35 Corrected Sodium 141 mmol/L (136-145) 10/01/16 17:35 Potassium 3.0 mmol/L (3.5-5.1) L* 10/01/16 17:35 Chloride 102 mmol/L (98-107) 10/01/16 17:35 Carbon Dioxide 19.3 mmol/L (21-32) L 10/01/16 17:35 BUN 12 mg/dL (7-18) 10/01/16 17:35 Creatinine 1.88 mg/dL (0.55-1.02) H 10/01/16 17:35 Est GFR (MDRD) Af Amer 36 (>60) L 10/01/16 17:35 Est GFR (MDRD) Non-Af 30 (>60) L 10/01/16 17:35 Glucose 171 mg/dL (65-99) H 10/01/16 17:35 Lactic Acid 1.7 mmol/L (0.4-2.0) 10/01/16 18:52 Calcium 9.5 mg/dL (8.5-10.1) 10/01/16 17:35 Corrected Calcium TNP 10/01/16 17:35 Total Bilirubin 0.40 mg/dL (0.2-1.0) 10/01/16 17:35 AST 13 Units/L (15-37) L 10/01/16 17:35 ALT 14 Units/L (12-78) 10/01/16 17:35 Alkaline Phosphatase 114 Units/L (46-116) 10/01/16 17:35 Total Protein 8.1 g/dL (6.4-8.2) 10/01/16 17:35 Albumin 3.6 g/dL (3.4-5.0) 10/01/16 17:35 Globulin 4.5 g/dL (2.5-4.5) 10/01/16 17:35 Albumin/Globulin Ratio 0.8 Ratio (1.1-2.1) L 10/01/16 17:35 Amylase 60 Units/L (25-115) 10/01/16 17:35 Specimen Type Clean catch urine 10/01/16 17:39 Urine Color Yellow (YELLOW) 10/01/16 17:39 Urine Appearance Hazy (CLEAR) 10/01/16 17:39 Urine pH 6.0 (5.0 - 8.0) 10/01/16 17:39 Ur Specific [place] 1.015 (1.000-1.030) 10/01/16 17:39 Urine Protein 3+ (NEGATIVE) 10/01/16 17:39 Urine Glucose (UA) Negative (NEGATIVE) 10/01/16 17:39 Urine Ketones 1+ (NEGATIVE) 10/01/16 17:39 Urine Occult Blood 3+ (NEGATIVE) 10/01/16 17:39 Urine Nitrite Negative (NEGATIVE) 10/01/16 17:39 Urine Bilirubin 1+ (NEGATIVE) 10/01/16 17:39 Urine Urobilinogen 1+ (NORMAL) 10/01/16 17:39 Ur Leukocyte Esterase 1+ (NEGATIVE) 10/01/16 17:39 Urine RBC 3-5 /HPF (NEGATIVE) 10/01/16 17:39 Urine WBC 11-20 /HPF (NEGATIVE) 10/01/16 17:39 Ur Squamous Epith Cells Few /HPF (NEGATIVE) 10/01/16 17:39 Urine Bacteria 1+ /HPF (NEGATIVE) 10/01/16 17:39 Ur Culture Indicated? Yes/culture set up 10/01/16 17:39 Urine Opiates Screen Negative (NEG=<300) 10/01/16 17:39 Urine Methadone Screen Negative (NEG=<300) 10/01/16 17:39 Ur Barbiturates Screen Negative (NEG=<200) 10/01/16 17:39 Ur Phencyclidine Scrn Negative (NEG=<25) 10/01/16 17:39 Ur Amphetamines Screen Negative (NEG=<1000) 10/01/16 17:39 U Benzodiazepines Scrn Negative (NEG=<200) 10/01/16 17:39 Urine Cocaine Screen Negative (NEG=<300) 10/01/16 17:39 U Marijuana (THC) Screen Positive (NEG=<50) A 10/01/16 17:39 - Diagnosis Discharge Problem: Perforated gastric ulcer, NSAID-induced gastric ulcer - Discharge Plan Condition: Stable - Follow ups/Referrals Follow ups/Referrals: Ender Cooper [Primary Care Provider] - 3 days - Instructions Additional Notes - Additional Notes Additional Notes: I spoke with Dr. Henderson and he agrees to accept this patient in transfer to [facility] for further management.
[2016-10-01 17:44] LABS: BASOPHILS # (AUTO) 0.1 X10^3/uL (0.0-0.1); BASOPHILS % (AUTO) 0.3 % (0.2-1.0); HEMATOCRIT 36.6 % (36.0-47.0); HEMOGLOBIN 12.6 g/dL (12.0-16.0); LYMPHOCYTES % (AUTO) 5.8 % (21.0-51.0); MEAN CORPUSCULAR HEMOGLOBIN 29.8 pg (27.0-34.0); MEAN CORPUSCULAR HGB CONC 34.5 g/dL (33.0-35.0); MEAN CORPUSCULAR VOLUME 86.6 fL (80.0-100.0); MEAN PLATELET VOLUME 8.9 fL (7.4-11.0); MONOCYTES # (AUTO) 0.6 x10^3/uL (0.3-0.8); MONOCYTES % (AUTO) 3.6 % (0.0-13.0); NEUTROPHILS # (AUTO) 16.2 x10^3/uL (2.2-4.8); NEUTROPHILS % (AUTO) 90.3 % (42.0-75.0); PLATELET COUNT 445 X10^3/uL (150.0-450.0); RED BLOOD COUNT 4.23 X10^6/uL (3.5-5.4); RED CELL DISTRIBUTION WIDTH 14.2 % (11.6-16.5); WHITE BLOOD COUNT 17.9 X10^3/uL (3.6-10.0)
[2016-10-01 17:45] LABS: BILIRUBIN,URINE 1+ (NEGATIVE); BLOOD/HEMOGLOBIN,URINE 3+ (NEGATIVE); GLUCOSE, URINE NEGATIVE (NEGATIVE); KETONES,URINE 1+ (NEGATIVE); LEUKOCYTE ESTERASE ,URINE 1+ (NEGATIVE); NITRITES,URINE NEGATIVE (NEGATIVE); PROTEIN,URINE 3+ (NEGATIVE); UROBILINOGEN,URINE 1+ (NORMAL)
[2016-10-01 18:01] LABS: BAND NEUTROPHILS % 10 % (0-10)
[2016-10-01 18:02] LABS: PLATELET MORPHOLOGY COMMENT NORMAL (NORMAL)
[2016-10-01 18:03] LABS: BLOOD UREA NITROGEN 12 mg/dL (7-18); CALCIUM 9.5 mg/dL (8.5-10.1); CARBON DIOXIDE 19.3 mmol/L (21-32); CHLORIDE 102 mmol/L (98-107); COR NA(FOR HYPERGLY) 141 mmol/L (136-145); CREATININE 1.88 mg/dL (0.55-1.02); GLUCOSE 171 mg/dL (65-99); SODIUM 139 mmol/L (136-145); eGFR BLACK RACES 36 (>60); eGFR NON BLACK RACES 30 (>60)
[2016-10-01 18:08] LABS: ALANINE AMINOTRANSFERASE 14 Units/L (12-78); ALBUMIN 3.6 g/dL (3.4-5.0); ALKALINE PHOSPHATASE 114 Units/L (46-116); AMYLASE 60 Units/L (25-115); ASPARTATE AMINO TRANSFERASE 13 Units/L (15-37); TOTAL PROTEIN 8.1 g/dL (6.4-8.2)
[2016-10-01 18:10] LABS: APPEARANCE,URINE HAZY (CLEAR); BACTERIA,URINE 1+ /HPF (NEGATIVE); COLOR,URINE YELLOW (YELLOW); SQUAMOUS EPITHELIAL CELL,UR FEW /HPF (NEGATIVE)
[2016-10-01] MEDS ORDERED: NS 1/2 + KCL 20 MEQ/L 1,000 ML IV ONE (18:15)
[2016-10-01] MEDS ORDERED: K-LYTE EFFERVESCENT ONE (18:23)
[2016-10-01 18:26] LABS: ERYTHROCYTE SEDIMENTATION RATE 45 MM/HOUR (0-20)
--- NOTE | 2016-10-01 18:41 | US ---
Right Upper Quadrant Sonogram Indication: Abdominal pain with hyperbilirubinemia Comparison: None available Technique: Multiple dai scale and color flow Doppler images of the right upper quadrant were obtain ed. Findings: The liver mildly decreased in echogenicity which is nonspecific however can be seen the setting of a edema/hepatitis. No focal intraparenchymal mass or intrahepatic biliary ductal dilatation can be o bserved. The gallbladder contains small amount of sludge without gallbladder distention, gallbladder wall thi ckening or pericholecystic fluid. The common bile duct is unremarkable measuring 4 mm. The right kidney appears normal in size without focal parenchymal mass or nephrolithiasis. The righ t kidney measurers 10.3 cm. No hydronephrosis or perirenal fluid can be observed. The pancreatic head and body are unremarkable. IMPRESSION: 1. Small amount of gallbladder sludge without sonographic evidence of acute cholecystitis. 2. Questionable decreased echogenicity throughout the liver parenchyma is nonspecific however can be seen in the setting of hepatitis, correlation with clinical findings and LFTs is recommended. Reported By:
[2016-10-01] MEDS ORDERED: NS + KCL 20 MEQ/L 1,000 ML IV ONE (18:51)
[2016-10-01] MEDS ORDERED: ZOFRAN INJ 4 MG VIAL IVP ONE (19:00)
[2016-10-01] MEDS ORDERED: ULTRAM ONE (19:02)
--- NOTE | 2016-10-01 19:02 | RAD ---
ACUTE ABDOMINAL SERIES CLINICAL HISTORY: 51-year-old female with abdominal pain for 3 weeks, predominantly on the left side . COMPARISON: Acute abdominal series August 31, 2016. FINDINGS: AP chest radiograph demonstrates normal cardiopericardial silhouette. There is no focal consolidatio n, pleural effusion or pneumothorax. Pulmonary vascularity is normal. Abdominal radiographs demonstrate a nonobstructive bowel gas pattern. Gas and stool are seen through out the colon. There is no small bowel distention. There is no radiographic evidence of pneumoperito neum. Multiple pelvic phleboliths. Imaged osseous structures are intact. Soft tissues are unremarkable. IMPRESSION: 1. No acute cardiopulmonary process. 2. Nonobstructive bowel gas pattern without radiographic evidence of pneumoperitoneum. Reported By:
[2016-10-01] MEDS ORDERED: ULTRAM PO ONE (19:03)
[2016-10-01] MEDS ORDERED: ZOFRAN INJ 4 MG VIAL ONE (19:06)
[2016-10-01] MEDS ORDERED: K-LYTE EFFERVESCENT PO ONE (19:19)
--- NOTE | 2016-10-01 22:11 | CT ---
CT ABDOMEN AND PELVIS WITH ORAL CONTRAST CLINICAL HISTORY: 51-year-old female with abdominal pain and leukocytosis. COMPARISON: Acute abdominal series radiographs this date. CT abdomen pelvis September 07, 2016. TECHNIQUE: Multiple axial CT images of the abdomen and pelvis were obtained following the administra tion of oral contrast. No intravenous contrast was administered. The images were reformatted in th e sagittal and coronal planes. FINDINGS: The lung bases are clear without pulmonary nodules, masses, or pleural fluid collections. The infer ior imaged heart is normal in size and there is no pericardial effusion. The liver, gallbladder, pancreas, and spleen are within normal limits for a study without IV contras t. There is free fluid throughout the abdomen and pelvis intermixed with oral contrast with moderate vo lume free intraperitoneal air. There is mild thickening of the greater curvature of the gastric wall along the lateral aspect with scattered pneumatosis. There is significant thickening of the mid les ser curvature with a focal defect at the incisura demonstrating free passage of contrast into the pe ritoneal cavity via the lesser sac. Cr coronal series 6, image 14 and sagittal series 7, image 30. O ral contrast reaches the rectum. The adrenal glands and kidneys are normal in appearance for a study without IV contrast. The ureter s run in an unobstructed course to a well distended urinary bladder. Status post hysterectomy. Vaginal cuff and adnexa are unremarkable. Pelvic phleboliths are present. The bowel is without obstruction or inflammation and there is no free fluid or free air within the p eritoneal cavity. Appendix is normal. There are no pathologically enlarged lymph nodes in the abdome n or pelvis. Bilateral breast implants with soft tissues otherwise unremarkable. The osseous structures are intact without fracture or malalignment. IMPRESSION: Gastric perforation at the level of the incisura with moderate intraperitoneal free air and free flu id intermixed with oral contrast, most likely secondary to perforated ulcer. Reported By:
[2016-10-01] MEDS ORDERED: FLAGYL IV PREMIX 500 MG BAG 500 MG/100 ML BAG IV ONE ×2 (22:28→22:32)
[2016-10-01] MEDS ORDERED: ZOSYN VIAL 3.375 GM 3.375 GM in NS 100 ML IV + SPIKE MINIBAG* 100 ML IV ONE (22:30)
[2016-10-01] MEDS ORDERED: MORPHINE SULFATE INJ 4 MG IVP ONE (22:32)
[2016-10-01] MEDS ORDERED: MORPHINE SULFATE INJ 4 MG ONE (22:42)
[2016-10-01 23:20] LABS: CARBON DIOXIDE 21.3 mmol/L (21-32); CREATININE 2.09 mg/dL (0.55-1.02)
[2016-10-01] MEDS ORDERED: NS 100 ML IV + SPIKE MINIBAG* 100 ML IV ONE (23:30)
[2016-10-01] MEDS ORDERED: ZOSYN VIAL 3.375 GM IV ONE (23:30)
[2016-10-01] MEDS ORDERED: DILAUDID INJ ONE (23:32)
[2016-10-01] MEDS ORDERED: DILAUDID INJ IVP ONE (23:34)
== END 2016-10-02 00:16 | disposition short-term general hospital (02) ==
LOC: ER 15:04
DX: K25.9 Gastric ulcer, unspecified as acute or chronic, without hemorrhage or perforation (principal)
CPT/HCPCS: 36415; 74022; 74176; 76705; 80048; 80053; 80307; 81001; 82150; 83605; 85025; 85652; 87040; 87086; 96365; 96367; 96374; 96375; 99284; 99285; A4222; J7030; S0030; G0434; J1170; J2270; J2405; J2543